=== PATIENT | female | born 1950 ===

== ENCOUNTER 2018-05-28 13:23 | Emergency (ER) | payer OTHER ==
[2018-05-28 13:34] VITALS: BP 128/78; RESP 16; TEMP 98.5; O2SAT 98; BMI 23.5
[2018-05-28] MEDS ORDERED: Promethazine DM 12.5 mg-30 mg/10 ml Syrup PO ONE (14:00)
[2018-05-28] MEDS ORDERED: Promethazine DM 6.25 mg-15 mg/5 ml Syrup PO ONE (14:15)
--- NOTE | 2018-05-28 14:25 | ED PDOC ---
HPI: Influenza Time Seen by Provider: 05/28/18 13:43 Chief Complaint: Flu-like Symptoms History Per: Patient, Family Exam Limitations: no limitations Additional complaint(s):: Hx of HTN presenting with 15 days of cough. Daughter states she's been sick for over 2 weeks with dry cough, bodyaches, sinus pain/pressure, and subjective fevers. Temperature was never checked at home. No sick contacts. Recently returned from [place]. Patient states she's been coughing so hard that her chest hurts. PMD: [facility] Past Medical History Reviewed: Historical Data, Nursing Documentation, Vital Signs Vital Signs: Last Vital Signs Temp 98.5 F 05/28/18 13:32 Pulse 79 05/28/18 13:32 Resp 16 05/28/18 13:32 BP 128/78 05/28/18 13:32 Pulse Ox 98 05/28/18 13:32 - Medical History PMH: HTN - Family History Family History: States: No Known Family Hx - Home Medications Home Medications: Ambulatory Orders Medication Instructions Recorded Azithromycin [Z-Aman] 250 mg PO DAILY #6 tab 05/28/18 Benzonatate [Tessalon Perle] 100 mg PO TID #20 capsule 05/28/18 - Allergies Allergies/Adverse Reactions: Allergies Allergy/AdvReac Type Severity Reaction Status Date / Time No Known Allergies Allergy Verified 05/28/18 13:42 Review of Systems ROS Statement: Except As Marked, All Systems Reviewed And Found Negative Constitutional: Positive for: Fever ENT: Positive for: Nose Congestion Respiratory: Positive for: Cough Physical Exam - Reviewed Nursing Documentation Reviewed: Yes Vital Signs Reviewed: Yes - Physical Exam Appears: Positive for: Well, Non-toxic, No Acute Distress Head Exam: Positive for: ATRAUMATIC, NORMAL INSPECTION, NORMOCEPHALIC Skin: Positive for: Normal Color, Warm, DRY Eye Exam: Positive for: EOMI, Normal appearance, PERRL ENT: Positive for: Normal ENT Inspection Neck: Positive for: Normal, Painless ROM Cardiovascular/Chest: Positive for: Regular Rate, Rhythm Respiratory: Positive for: CNT, Normal Breath Sounds Gastrointestinal/Abdominal: Positive for: Normal Exam, Soft Back: Positive for: Normal Inspection Extremity: Positive for: Normal ROM Neurologic/Psych: Positive for: Alert, electric motor assembler II-XII, Oriented. Negative for: Motor/Sensory Deficits Medical Decision Making Medical Decision MakinPM Patient presenting with cough, congestion, fevers --Very well appearing, normal vitals --Patient likely suffering with viral illness, flu, possible sinusiits --Will check swab, CXR 330PM --Flu neg, CXR neg --Advised supportive care --Recommend followup with [facility] in 2 -3 days for checkup --Well appearing upon discharge - ECG ECG Rhythm: Positive for: Normal QRS, Normal ST Segment, Sinus Rhythm Rate: 75 O2 Sat by Pulse Oximetry: 98 Pulse Ox Interpretation: Normal Disposition - Clinical Impression Clinical Impression: Upper respiratory infection - Patient ED Disposition Is Patient to be Admitted: No - Disposition Referrals: [facility] [Outside] Disposition: Routine/Home Disposition Time: 15:44 Condition: GOOD Prescriptions: Azithromycin [Z-Aman] 250 mg PO DAILY #6 tab Benzonatate [Tessalon Perle] 100 mg PO TID #20 capsule Instructions: Bacterial Upper Respiratory Infection, Adult Forms: [facility] (Divehi) Print Language: ALBANIAN
[2018-05-28 14:27] VITALS: PULSE 75
--- NOTE | 2018-05-28 14:47 | RAD ---
Date of service: 05/28/2018 HISTORY: cough, chest pain COMPARISON: No prior. TECHNIQUE: Chest PA and lateral FINDINGS: LUNGS: No active pulmonary disease. Mild biapical pleural thickening PLEURA: No significant pleural effusion identified. No pneumothorax apparent. CARDIOVASCULAR: Suspect minimal aortic atherosclerotic calcification present. Normal cardiac size. No pulmonary vascular congestion. OSSEOUS STRUCTURES: Minor multilevel degenerative spondylosis of the thoracic spine. VISUALIZED UPPER ABDOMEN: Normal. OTHER FINDINGS: None. IMPRESSION: Mild biapical pleural thickening. No acute consolidation.
--- NOTE | 2018-05-28 20:40 | CARD ---
APPROVED REPORT Date of service: 05/28/2018 EKG Measurement Heart [id number] <Conclusion> Normal sinus rhythm Normal ECG
== END 2018-05-28 16:15 | disposition home or self-care (01) ==
LOC: SUPCPDRO 13:23 → H.ER 13:23
DX: J06.9 Acute upper respiratory infection, unspecified (principal); I10 Essential (primary) hypertension

== ENCOUNTER 2018-10-21 12:12 | Emergency (ER) | payer OTHER ==
[2018-10-21 12:18] VITALS: RESP 17; TEMP 98.4; O2SAT 99; BMI 22.4
--- NOTE | 2018-10-21 12:55 | ED PDOC ---
Lower Extremity Pain/Injury Time Seen by Provider: 10/21/18 12:21 Chief Complaint (Nursing): Lower Extremity Problem/Injury Chief Complaint (Provider): lower extremity problem/injury History Per: Patient History/Exam Limitations: no limitations Onset/Duration Of Symptoms: Days (2x) Current Symptoms Are (Timing): Still Present Severity: Moderate Additional Complaint(s): 67 year old female with no pertinent past medical history presents to the ED for an evaluation of left ankle pain that started last night status post injury. Patient states that last night she was going down the stairs when she tripped and fell, twisting her left ankle. Patient reports having pain and swelling of the left ankle since then. Patient denies numbness or tingling. PMD: None provided Past Medical History Reviewed: Historical Data, Nursing Documentation, Vital Signs Vital Signs: Last Vital Signs Temp 98.4 F 10/21/18 12:16 Pulse 68 10/21/18 12:16 Resp 17 10/21/18 12:16 BP 129/79 10/21/18 12:16 Pulse Ox 99 10/21/18 12:16 MIKE Report Viewed: Yes Primary Care Provider: Non [facility] Provider, - Medical History PMH: HTN - Family History Family History: States: No Known Family Hx - Social History Current smoker - smoking cessation education provided: No Alcohol: None Drugs: Denies - Immunization History Hx Tetanus Toxoid Vaccination: No Hx Influenza Vaccination: No Hx Pneumococcal Vaccination: No - Home Medications Home Medications: Ambulatory Orders Medication Instructions Recorded Azithromycin [Z-Aman] 250 mg PO DAILY #6 tab 05/28/18 Benzonatate [Tessalon Perle] 100 mg PO TID #20 capsule 05/28/18 - Allergies Allergies/Adverse Reactions: Allergies Allergy/AdvReac Type Severity Reaction Status Date / Time No Known Allergies Allergy Verified 05/28/18 13:42 Review of Systems ROS Statement: Except As Marked, All Systems Reviewed And Found Negative Musculoskeletal: Positive for: Other (left ankle pain and swelling) Neurological: Negative for: Numbness ((-) tingling) Physical Exam - Reviewed Nursing Documentation Reviewed: Yes Vital Signs Reviewed: Yes - Physical Exam Appears: Positive for: Well, Non-toxic, No Acute Distress Head Exam: Positive for: ATRAUMATIC, NORMOCEPHALIC Skin: Positive for: Normal Color, Warm, Dry Pulses-Dorsalis Pedis (L): 2+ Pulses-Dorsalis Pedis (R): 2+ Extremity: Positive for: Other (left lateral malleolus with mild tenderness and swelling. (-) foot tenderness, (-) leg tenderness. (-) break in skin integrity. Distal sensation intact) Neurological/Psych: Positive for: Awake, Alert, Oriented (3x) - ECG O2 Sat by Pulse Oximetry: 99 (RA) Pulse Ox Interpretation: Normal - Radiology X-Ray: Interpreted by Me (L ankle x-ray) X-Ray Interpretation: No Acute Disease - Progress ED Course And Treament: Ankle immobilized in aircast splint applied by equipment tech. Crutches and crutch walking instructions provided by equipment tech. Medical Decision Making Medical Decision Makin:21 Initial impression: 67 year old female with a left ankle injury Initial plan: * XRay ankle left 3 views * tylenol 325 mg tab 650 mg PO * reevaluation ScribeAttestation: Documented byDaisy Walton, acting as a scribe for Randolph Mahajan Provider ScribeAttestation: All medical record entries made by the Scribe were at my direction and personally dictated by me. I have reviewed the chart and agree that the record accurately reflects my personal performance of the history, physical exam, medical decision making, and the department course for this patient. I have also personally directed, reviewed, and agree with the discharge instructions and disposition. Disposition - Clinical Impression Clinical Impression: Ankle sprain - Patient ED Disposition Is Patient to be Admitted: No - Disposition Referrals: [facility] [Outside] Disposition: Routine/Home Disposition Time: 12:59 Condition: STABLE Additional Instructions: FOLLOW UP WITH PODIATRY CLINIC FOR FURTHER EVALUATION RETURN TO ED IMMEDIATELY IF SYMPTOMS WORSEN Instructions: Ankle Sprain (DC), How to Use Crutches, Going Up and Down Curbs or Stairs With a Walker or Crutches Print Language: GEORGIAN
--- NOTE | 2018-10-21 13:42 | RAD ---
Date of service: 10/21/2018 PROCEDURE: Left Ankle Radiographs. HISTORY: trauma COMPARISON: None available. TECHNIQUE: 3 views obtained. FINDINGS: BONES: Normal. No fracture. JOINTS: Normal. No osteoarthritis. Ankle mortise maintained. Talar dome intact SOFT TISSUES: No definite soft tissue edema appreciable. Prominent ossification of the insertion of the Achilles tendon is noted at the posterior calcaneus. OTHER FINDINGS: None. IMPRESSION: No acute fracture, subluxation or dislocation in left ankle radiographs.
[2018-10-21 13:53] VITALS: BP 125/75; PULSE 70
== END 2018-10-21 13:30 | disposition home or self-care (01) ==
LOC: H.ER 12:12
DX: S93.402A Sprain of unspecified ligament of left ankle, initial encounter (principal); W01.0XXA Fall on same level from slipping, tripping and stumbling without subsequent striking against object, initial encounter; I10 Essential (primary) hypertension